=== PATIENT | female | born 1990 ===

== ENCOUNTER 2021-07-12 07:30 | Inpatient (IN) | payer OTHER ==
[2021-07-20] MEDS ORDERED: Bicitra 30 ML UDCUP PO PRN (05:43)
[2021-07-20] MEDS ORDERED: CEFAZOLIN 2 GM in Premix Bag 1 BAG IVPB SCH (05:43)
[2021-07-20] MEDS ORDERED: Promethazine HCl 25 MG/ML VIAL IM PRN ×2 (05:43→09:52)
[2021-07-20] MEDS ORDERED: Lactated Ringer's 1,000 ML IV SCH (05:43)
[2021-07-20] MEDS ORDERED: Ondansetron PF 4 MG/2 ML Vial IVP PRN ×3 (05:43→11:14)
[2021-07-20] MEDS ORDERED: hydrALAZINE 20 MG/ML VIAL SLOW IVP PRN ×2 (05:43→11:14)
[2021-07-20] MEDS ORDERED: Famotidine/PF 20 mg/2ml Vial SLOW IVP PRN (05:43)
[2021-07-20 06:52] VITALS: BMI 43.2
[2021-07-20 06:53] LABS: Hemoglobin 11.9 g/dL (12.0-15.5); Mean Corpuscular HGB CONC 32.5 g/dL (32.0-36.0); Mean Corpuscular Hemoglobin 27.4 pg (27.0-33.0); Mean Corpuscular Volume 84.3 fl (81.6-98.3); Mean Platelet Volume 12.1 fl (7.4-10.4); Platelet Count 199 10x3/uL (150-450); RBC Distribution Width 13.8 % (11.5-14.5); Red Blood Cell (RBC) Count 4.34 10x6/uL (3.90-5.03); White Blood Cell (WBC) Count 8.7 10x3/uL (3.5-10.5)
[2021-07-20] MEDS ORDERED: PHENYLEPHRINE-NS 100 MCG/ML 10 ML SYRINGE ONE (07:05)
[2021-07-20] MEDS ORDERED: Morphine PF 10 MG/10 ML VIAL ONE (07:05)
[2021-07-20] MEDS ORDERED: Oxytocin 10 UNITS/ML VIAL ONE (07:06)
[2021-07-20] MEDS ORDERED: Ketorolac Tromethamine 30 MG/ML VIAL ONE (07:06)
[2021-07-20] MEDS ORDERED: Phenylephrine 40 MG/NS 250 ML 250 ML ONE (07:06)
[2021-07-20] MEDS ORDERED: Metoclopramide HCl 10 MG/2 ML VIAL ONE (07:06)
[2021-07-20] MEDS ORDERED: Dexamethasone 4 mg/ml Vial ONE (07:06)
[2021-07-20] MEDS ORDERED: Ondansetron PF 4 MG/2 ML Vial ONE (07:06)
[2021-07-20 07:21] LABS: Syphilis Antibody Nonreactive (Nonreactive); Syphilis Antibody Index 0.04 S/CO (<1.00 Non-Reactive)
[2021-07-20 08:19] LABS: HIV (1/2) Antibody/Antigen Non-Reactive (NonReactive); HIV 1/2 INDEX 0.06 S/CO (<1.00); Hep B Surf Ag Non-Reactive S/CO (NonReactive)
[2021-07-20 08:29] LABS: HBSAg Index 0.18 S/CO (0-0.99)
[2021-07-20] MEDS ORDERED: Naloxone HCl 0.4 mg/ml Vial IV PRN (09:52)
[2021-07-20] MEDS ORDERED: Naloxone HCl 0.4 mg/ml Vial IVP PRN ×2 (09:52)
[2021-07-20] MEDS ORDERED: Meperidine HCl/PF 25 MG/ML VIAL SLOW IVP PRN (09:52)
[2021-07-20] MEDS ORDERED: Ondansetron HCl/PF 4 MG/2 ML Vial IVP PRN (09:52)
[2021-07-20] MEDS ORDERED: diphenhydrAMINE 50 MG/ML VIAL IVP PRN (09:52)
[2021-07-20] MEDS ORDERED: Promethazine HCl 25 MG SUPP PR PRN (09:52)
[2021-07-20] MEDS ORDERED: Fentanyl 100 MCG/2 ML VIAL SLOW IVP PRN (09:52)
[2021-07-20] MEDS ORDERED: Hydrocerin (Eucerin) Cream 120 gm Jar TOP PRN (09:52)
[2021-07-20] MEDS ORDERED: Communication Order-Pharmacy FS SCH (10:00)
[2021-07-20] MEDS ORDERED: NS w/ Oxytocin 30 units 500 ML IV SCH (11:14)
[2021-07-20] MEDS ORDERED: Lanolin Ointment 7 GM TUBE TOP PRN (11:14)
[2021-07-20] MEDS ORDERED: diphenhydrAMINE 25 MG CAP PO PRN (11:14)
[2021-07-20] MEDS ORDERED: Prenatal Vitamin 1 TAB PO SCH (12:00)
[2021-07-20] MEDS ORDERED: Ferrous Sulfate 325 MG TAB PO SCH (12:00)
[2021-07-20] MEDS ORDERED: Docusate Calcium (SURFAK) 240 MG CAP PO SCH (12:00)
[2021-07-20] MEDS ORDERED: Ketorolac Tromethamine 30 MG/ML VIAL IVP PRN (15:00)
[2021-07-20] MEDS: Simethicone Chewable 80 MG TAB PO PRN (21:42)
[2021-07-20] MEDS: Docusate Calcium (SURFAK) 240 MG CAP PO SCH (21:43)
[2021-07-20] MEDS: Ibuprofen 800 MG TAB PO SCH (21:53)
[2021-07-20] MEDS ORDERED: HYDROcodone/Acetaminophen 5/325 mg Tablet PO PRN (22:00)
[2021-07-20] MEDS: Ferrous Sulfate 325 MG TAB PO SCH (22:15)
[2021-07-21] MEDS: Ibuprofen 800 MG TAB PO SCH ×3 (05:02→20:47)
[2021-07-21 05:53] LABS: Hemoglobin 10.8 g/dL (12.0-15.5); Mean Corpuscular HGB CONC 31.3 g/dL (32.0-36.0); Mean Corpuscular Hemoglobin 26.6 pg (27.0-33.0); Mean Platelet Volume 11.8 fl (7.4-10.4); Platelet Count 189 10x3/uL (150-450); RBC Distribution Width 13.8 % (11.5-14.5); Red Blood Cell (RBC) Count 4.06 10x6/uL (3.90-5.03); White Blood Cell (WBC) Count 13.9 10x3/uL (3.5-10.5)
[2021-07-21] MEDS: HYDROcodone/Acetaminophen 5/325 mg Tablet PO PRN ×2 (09:21→20:54)
[2021-07-21] MEDS: Prenatal Vitamin 1 TAB PO SCH (09:21)
[2021-07-21] MEDS: Docusate Calcium (SURFAK) 240 MG CAP PO SCH ×2 (09:21→20:48)
[2021-07-21] MEDS: Ferrous Sulfate 325 MG TAB PO SCH (09:21)
[2021-07-21] MEDS: Simethicone Chewable 80 MG TAB PO PRN ×2 (09:22→20:54)
[2021-07-21] MEDS ORDERED: Boostrix 0.5 ML (Tdap) VIAL IM ONE (11:14)
[2021-07-22] MEDS: HYDROcodone/Acetaminophen 5/325 mg Tablet PO PRN ×2 (02:00→13:21)
[2021-07-22] MEDS: Ferrous Sulfate 325 MG TAB PO SCH ×2 (02:01→07:59)
[2021-07-22 08:05] VITALS: BP 127/67; TEMP 97.5
[2021-07-22] MEDS: Prenatal Vitamin 1 TAB PO SCH (08:10)
[2021-07-22] MEDS: Docusate Calcium (SURFAK) 240 MG CAP PO SCH (08:10)
[2021-07-22] MEDS: Ibuprofen 800 MG TAB PO SCH (08:10)
[2021-07-25] MEDS ORDERED: Ibuprofen 800 MG TAB PO SCH (22:00)
== END 2021-07-22 13:50 | disposition home or self-care (01) | DRG 788 ==
LOC: CSHLD 07-20 05:34 → CSHPP 07-20 11:27
PROVIDERS: ADMIT Obstetrics & Gynecology; ATTEND Obstetrics & Gynecology
PROC: 10907ZC Drainage of Amniotic Fluid, Therapeutic from Products of Conception, Via Natural or Artificial Opening (ICD-10-PCS; principal; 2021-07-20)
PROC: 10D00Z1 Extraction of Products of Conception, Low, Open Approach (ICD-10-PCS; 2021-07-20)
DX: O34.211 Maternal care for low transverse scar from previous cesarean delivery (principal); O99.02 Anemia complicating childbirth; Z3A.40 40 weeks gestation of pregnancy; D50.9 Iron deficiency anemia, unspecified; Z37.0 Single live birth
CPT/HCPCS: 36415; 51702; 85027; 86762; 86780; 86850; 86900; 86901; 87340; 87389; 99285; J0690; J1100; J1885; J2274; J2405; J2590; J2765